=== PATIENT | male | born 1945 | race Caucasian/White ===

== ENCOUNTER 2019-12-22 11:06 | Outpatient (CLI) | payer MEDICARE ==
--- NOTE | 2019-12-22 12:14 | CT Report ---
PROCEDURE: CHEST WO INDICATIONS: STENOSIS OF RIGHT CAROTID ARTERY TECHNIQUE: Noncontrast 5 mm thick sections acquired from the pulmonary apices to the posterior costophrenic angl es. 7 mm thick coronal and sagittal MIP reformats were then acquired. For radiation dose reduction, the following was used: automated exposure control, adjustment of mA and/or kV according to patient size. COMPARISON: None available FINDINGS: Image quality: Excellent. Lungs and pleura: No acute air space opacities. Centrilobular emphysematous changes are seen, which are more prominent at the lung apices down at the lung bases. No pleural effusions or pneumothorax. Central and peripheral airways are patent and normal in caliber. Mediastinum: Heart size is normal. There is a small to moderate pericardial effusion. No mediastina l adenopathy by size criteria. Thoracic aorta and central pulmonary arteries are normal in size. At herosclerotic changes are seen, including involving the coronary arteries. Esophagus is normal in [place]. No hiatal hernia. Bones and chest wall: No suspicious bony lesions. Age-appropriate degenerative changes are seen. No vertebral body compression fractures. No axillary or supraclavicular adenopathy by size criteria. The thyroid is normal in size. Abdomen: Atherosclerotic calcification can be seen, including involving the renal arteries and the pr oximal branches of the aorta. The visualized portions of the upper abdominal structures are otherwise within normal limits. IMPRESSION: No pulmonary nodules are seen. Centrilobular emphysematous changes are seen. Small to moderate pericardial effusion. Atherosclerotic changes are seen, including involving the coronary arteries, the branches of the aort a, and the renal arteries. Reviewed by: Luis Bedoya MD on 12/22/2019 11:12 AM DYANA Approved by: Luis Bedoya MD on 12/22/2019 11:12 AM AKSABRINA Station ID: [id number]
--- NOTE | 2019-12-22 15:00 | Ultrasound Report ---
PROCEDURE: Carotid Doppler Complete INDICATIONS: STENOSIS OF RIGHT CAROTID ARTERY TECHNIQUE: Color and pulse Doppler interrogation was performed of both carotid systems, with image documentation and velocity measurements. COMPARISON: None available FINDINGS: Right side: Brachial blood pressure: Not given Common carotid artery peak systolic velocity: 90 cm/sec. Internal carotid artery peak systolic velocity: 146 cm/sec. Internal carotid artery end diastolic velocity: 34 cm/sec. External carotid artery peak systolic velocity: 133 cm/sec. ICA/CCA peak systolic ratio: 1.6 Raygoza scale imaging description: Areas of atherosclerotic change are seen. Percent internal carotid artery stenosis: 50-69% stenosis by velocity criteria. Vertebral artery: Flow direction is antegrade. Left side: Brachial blood pressure: Not given Common carotid artery peak systolic velocity: 153 cm/sec. Internal carotid artery peak systolic velocity: 134 cm/sec. Internal carotid artery end diastolic velocity: 26 cm/sec. External carotid artery peak systolic velocity: 171 cm/sec. ICA/CCA peak systolic ratio: 0.9 Raygoza scale imaging description: Atherosclerotic changes are seen. Percent internal carotid artery stenosis: 50-69% stenosis by velocity criteria. Vertebral artery: Flow direction is antegrade. IMPRESSION: By velocity criteria, there are 50-69% stenoses seen of the bilateral internal carotid arteries, righ t worse than left. The estimate of stenosis included in the report of the imaging study was calculated using the NASCET method Reviewed by: Luis Bedoya MD on 12/22/2019 1:59 PM DYANA Approved by: Luis Bedoya MD on 12/22/2019 1:59 PM DYANA Station ID: [id number]
== END 2019-12-22 11:07 | disposition home or self-care (01) ==
LOC: DI 11:06
PROVIDERS: ATTEND Family Medicine
DX: I65.23 Occlusion and stenosis of bilateral carotid arteries (principal); J43.2 Centrilobular emphysema; I31.3 Pericardial effusion (noninflammatory); I25.10 Atherosclerotic heart disease of native coronary artery without angina pectoris; I70.1 Atherosclerosis of renal artery
CPT/HCPCS: 71250; 93880

== ENCOUNTER 2019-12-22 11:20 | Outpatient (CLI) | payer MEDICARE ==
[2019-12-22 12:37] LABS: BASOPHILS % (AUTO) 0.5 %; EOSINOPHILS # (AUTO) 0.1 10^3/uL (0.0-0.7); EOSINOPHILS % (AUTO) 1.5 %; HGB - HEMOGLOBIN 11.9 g/dL (14.0-18.0); LYMPHOCYTES # (AUTO) 1.5 10^3/uL (1.5-3.5); LYMPHOCYTES % (AUTO) 19.2 %; MEAN CORPUSCULAR HEMOGLOBIN 31.8 pg (27.0-31.0); MEAN CORPUSCULAR HGB CONC 33.5 g/dL (32.0-36.0); MEAN CORPUSCULAR VOLUME 94.9 fL (80.0-94.0); MEAN PLATELET VOLUME 9.6 fL (7.4-11.4); MONOCYTES # (AUTO) 0.7 10^3/uL (0.0-1.0); MONOCYTES % (AUTO) 8.6 %; NEUTROPHILS # (AUTO) 5.6 10^3/uL (1.5-6.6); NEUTROPHILS % (AUTO) 69.8 %; PLT - PLATELET COUNT 182 10^3/uL (130-450); RED BLOOD COUNT 3.74 10^6/uL (4.70-6.10); RED CELL DISTRIBUTION WIDTH 12.8 % (12.0-15.0)
[2019-12-22 12:55] LABS: ALBUMIN 4.1 g/dL (3.2-5.5); ALBUMIN/GLOBULIN RATIO 1.1 (1.0-2.2); ALKALINE PHOSPHATASE 53 IU/L (42-121); ALT ALANINE AMINOTRANSFERASE 24 IU/L (10-60); AST ASPARTATE AMINOTRANSFERASE 18 IU/L (10-42); BILIRUBIN,TOTAL 1.1 mg/dL (0.2-1.0); BUN - BLOOD UREA NITROGEN 23 mg/dL (6-20); CALCIUM 9.1 mg/dL (8.5-10.3); CARBON DIOXIDE - CO2 25 mmol/L (21-32); CHLORIDE 103 mmol/L (101-111); CHOL/HDL RATIO 2.1 (<5.0); CHOLESTEROL 93 mg/dL; CREATININE 1.3 mg/dL (0.6-1.2); GLUCOSE 122 mg/dL (70-100); HDL CHOLESTEROL 44 mg/dL; LDL CHOLESTEROL,CALCULATED 36 mg/dL; LDL/HDL RATIO 0.8 (<3.6); SODIUM 138 mmol/L (135-145); TOTAL PROTEIN 7.8 g/dL (6.7-8.2); VLDL CHOLESTEROL 13 mg/dL
== END 2019-12-22 11:21 | disposition home or self-care (01) ==
LOC: LAB 11:20
PROVIDERS: ATTEND Family Medicine
DX: I10 Essential (primary) hypertension (principal); R06.02 Shortness of breath; R63.5 Abnormal weight gain; M79.89 Other specified soft tissue disorders
CPT/HCPCS: 36415; 80053; 80061; 83721; 83880; 84443; 85025; 85379

== ENCOUNTER 2020-01-24 11:55 | Outpatient (CLI) | payer MEDICARE ==
--- NOTE | 2020-01-25 21:08 | Ultrasound Report ---
PROCEDURE: Retroperitoneal INDICATIONS: DYSPNEA TECHNIQUE: Real-time scanning was performed of the retroperitoneal organs, with image documentation. COMPARISON: None. FINDINGS: Kidneys: Kidneys are normal in size. Right kidney measures 11.3 cm long; left kidney measures 11.0 cm long. Right renal cortical thickness is 1.3 cm; left renal cortical thickness is 1.7 cm. No sol d masses, hydronephrosis, or nephrolithiasis. Septated cyst involving the lower pole of the left kid juan measuring 5.2 x 3.2 x 3.7 cm. Bladder: Mild bladder wall thickening. Prevoid bladder measures 111.6 mL. Minimal postvoid residual o f 6.5 mL. Bilateral ureteral jets are noted. Enlarged prostate measuring 4.7 x 4.2 x 5.8 cm. IMPRESSION: 1. Normal-sized kidneys with no evidence of hydronephrosis or mass. 2. Enlarged prostate with bladder wall thickening. 3. No significant postvoid residual. Reviewed by: Jaret Dumas MD on 01/25/2020 9:07 PM PDT Approved by: Jaret Dumas MD on 01/25/2020 9:07 PM PDT Station ID: [id number]
== END 2020-01-24 11:56 | disposition home or self-care (01) ==
LOC: DI 11:55
PROVIDERS: ATTEND Family Medicine
DX: R06.09 Other forms of dyspnea (principal); N40.0 Benign prostatic hyperplasia without lower urinary tract symptoms; N32.89 Other specified disorders of bladder; Z87.891 Personal history of nicotine dependence
CPT/HCPCS: 76770; 93306

== ENCOUNTER 2020-02-06 09:33 | Outpatient (CLI) | payer MEDICARE ==
[2020-02-06 09:46] LABS: BASOPHILS # (AUTO) 0.1 10^3/uL (0.0-0.1); BASOPHILS % (AUTO) 0.6 %; EOSINOPHILS # (AUTO) 0.3 10^3/uL (0.0-0.7); EOSINOPHILS % (AUTO) 4.1 %; HGB - HEMOGLOBIN 11.5 g/dL (14.0-18.0); LYMPHOCYTES # (AUTO) 2.4 10^3/uL (1.5-3.5); MEAN CORPUSCULAR HEMOGLOBIN 31.8 pg (27.0-31.0); MEAN CORPUSCULAR HGB CONC 33.3 g/dL (32.0-36.0); MEAN CORPUSCULAR VOLUME 95.3 fL (80.0-94.0); MEAN PLATELET VOLUME 9.3 fL (7.4-11.4); MONOCYTES # (AUTO) 0.9 10^3/uL (0.0-1.0); MONOCYTES % (AUTO) 11.2 %; NEUTROPHILS # (AUTO) 4.1 10^3/uL (1.5-6.6); NEUTROPHILS % (AUTO) 52.6 %; PLT - PLATELET COUNT 197 10^3/uL (130-450); RED BLOOD COUNT 3.62 10^6/uL (4.70-6.10); RED CELL DISTRIBUTION WIDTH 13.1 % (12.0-15.0); WHITE BLOOD COUNT 7.7 x10^3/uL (4.8-10.8)
[2020-02-06 09:55] LABS: BILIRUBIN,URINE NEGATIVE (NEGATIVE); GLUCOSE, URINE (UA) NEGATIVE (NEGATIVE); KETONES,URINE (UA) TRACE mg/dL (NEGATIVE); LEUKOCYTE ESTERASE, URINE NEGATIVE (NEGATIVE); NITRITE,URINE NEGATIVE (NEGATIVE); OCCULT BLOOD,URINE NEGATIVE (NEGATIVE); PH,URINE 5.5 PH (5.0-7.5); PROTEIN,URINE NEGATIVE (NEGATIVE); UROBILINOGEN,URINE 0.2 (NORMAL) E.U./dL (NORMAL)
[2020-02-06 09:58] LABS: CLARITY,URINE CLEAR (CLEAR)
[2020-02-06 10:04] LABS: CALCIUM 9.3 mg/dL (8.5-10.3); CREATININE 1.5 mg/dL (0.6-1.2)
[2020-02-06 10:06] LABS: BACTERIA,URINE Rare /HPF (None Seen); RBC,URINE 0-5 /HPF (0-5); SQUAMOUS EPITHELIAL CELL,UR RARE Squamous (<= Few)
[2020-02-06 10:11] LABS: HB2 TOTAL 12.1 g/dL; HEMOGLOBIN A1C 0.54 g/dL; HEMOGLOBIN A1C % 6.2 % (4.6-6.2)
[2020-02-06 10:36] LABS: CREATININE,URINE 246.9 mg/dL; MICROALBUMIN,URINE 0.5 mg/dL (0-300.0)
== END 2020-02-06 09:34 | disposition home or self-care (01) ==
LOC: LAB 09:33
PROVIDERS: ATTEND Family Medicine
DX: D64.9 Anemia, unspecified (principal); R73.03 Prediabetes; R79.89 Other specified abnormal findings of blood chemistry
CPT/HCPCS: 36415; 80048; 81001; 82043; 82570; 82728; 83036; 83540; 84466; 85025; 87086

== ENCOUNTER 2020-03-01 10:41 | Outpatient (CLI) | payer MEDICARE | END 2020-03-01 10:42 | disposition home or self-care (01) | LOC: DI 10:41 | PROVIDERS: ATTEND Family Medicine | DX: J43.2 Centrilobular emphysema (principal); R91.1 Solitary pulmonary nodule ==

== ENCOUNTER 2020-03-01 10:42 | Outpatient (CLI) | payer MEDICARE ==
--- NOTE | 2020-03-01 18:54 | Ultrasound Report ---
PROCEDURE: Carotid Doppler Complete INDICATIONS: STENOSIS OF RT CAROTID ARTERY TECHNIQUE: Color and pulse Doppler interrogation was performed of both carotid systems, with image documentation and velocity measurements. COMPARISON: 12/22/2019 FINDINGS: Right side: Common carotid artery peak systolic velocity: 97 cm/sec, prior 90 cm/sec. Internal carotid artery peak systolic velocity: 109 cm/sec, prior 146 cm/sec. Internal carotid artery end diastolic velocity: 19 cm/sec, prior 34 cm/sec. External carotid artery peak systolic velocity: 114 cm/sec, prior 133 cm/sec. ICA/CCA peak systolic ratio: 1, prior 1.6 Raygoza scale imaging description: Moderate atherosclerotic changes are seen. Percent internal carotid artery stenosis: Less than 50% by velocity criteria. Vertebral artery: Flow direction is antegrade. Left side: Common carotid artery peak systolic velocity: 148 cm/sec, prior 153 cm/sec. Internal carotid artery peak systolic velocity: 160 cm/sec, prior 134 cm/sec. Internal carotid artery end diastolic velocity: 17 cm/sec, prior 26 cm/sec. External carotid artery peak systolic velocity: 148 cm/sec, prior 171 cm/sec. ICA/CCA peak systolic ratio: 0.7, prior 0.9 Raygoza scale imaging description: Moderate atherosclerotic changes are seen Percent internal carotid artery stenosis: 50-69% stenosis by velocity criteria Vertebral artery: Flow direction is antegrade. IMPRESSION: Examination similar to prior, with a mild stenosis seen on the left, likely just greater than 50% cecil nosis. The previously seen right internal carotid artery stenosis is now regarded by velocity criteria to be just below 50%. The estimate of stenosis included in the report of the imaging study was calculated using the NASCET method Reviewed by: Luis Bedoya MD on 03/01/2020 5:52 PM AKDT Approved by: Luis Bedoya MD on 03/01/2020 5:52 PM AKDT Station ID: [id number]
== END 2020-03-01 10:43 ==
LOC: DI 10:42
PROVIDERS: ATTEND Family Medicine
DX: I65.22 Occlusion and stenosis of left carotid artery (principal); J43.2 Centrilobular emphysema; R91.1 Solitary pulmonary nodule
CPT/HCPCS: 93880

== ENCOUNTER 2020-03-15 09:38 | Outpatient (CLI) | payer MEDICARE ==
--- NOTE | 2020-03-15 12:04 | CT Report ---
PROCEDURE: CHEST WO INDICATIONS: STENOSIS OF RIGHT CAROTID ARTERY TECHNIQUE: Noncontrast 5 mm thick sections acquired from the pulmonary apices to the posterior costophrenic angl es. 7 mm thick coronal and sagittal MIP reformats were then acquired. For radiation dose reduction, the following was used: automated exposure control, adjustment of mA and/or kV according to patient size. COMPARISON: 12/22/2019 FINDINGS: Image quality: Excellent. Lungs and pleura: Centrilobular emphysematous changes are seen, which are more prominent at the lung apices down at the lung bases. No acute air space opacities. No pleural effusions or pneumothorax. Central and peripheral airways are patent and normal in caliber. Mediastinum: Heart size is normal. There is a small pericardial effusion. No mediastinal adenopathy by size criteria. Thoracic aorta and central pulmonary arteries are normal in size. Atherosclerotic calcification is seen. Coronary artery calcifications are seen. Esophagus is normal in caliber. No hiatal hernia. Bones and chest wall: No suspicious bony lesions. No vertebral body compression fractures. No axil guy or supraclavicular adenopathy by size criteria. The thyroid is normal in size. Abdomen: A gallstone is seen, as on series 3 image 64. Diverticulosis can be seen, without karly fin dings of active diverticulitis. Atherosclerotic calcification is seen. The visualized portions of th e upper abdominal structures are otherwise within normal limits. IMPRESSION: Extensive atherosclerotic calcification is seen, including coronary artery calcification. The previously seen pericardial effusion has improved since the prior and is now small in size. Incidental note is made of: Centrilobular emphysematous changes Gallstone Diverticulosis can be seen, without karly findings of active diverticulitis. Reviewed by: Luis Bedoya MD on 03/15/2020 11:02 AM DYANA Approved by: Luis Bedoya MD on 03/15/2020 11:02 AM AKSABRINA Station ID: [id number]
== END 2020-03-15 09:39 | disposition home or self-care (01) ==
LOC: DI 09:38
PROVIDERS: ATTEND Family Medicine
DX: I25.10 Atherosclerotic heart disease of native coronary artery without angina pectoris (principal)
CPT/HCPCS: 71250

== ENCOUNTER 2020-05-11 08:28 | Outpatient (CLI) | payer MEDICARE ==
[2020-05-11 09:36] LABS: BUN - BLOOD UREA NITROGEN 20 mg/dL (6-20); CALCIUM 9.1 mg/dL (8.5-10.3); CARBON DIOXIDE - CO2 26 mmol/L (21-32); CHLORIDE 105 mmol/L (101-111); CHOL/HDL RATIO 3.9 (<5.0); CHOLESTEROL 104 mg/dL; CREATININE 1.6 mg/dL (0.6-1.2); GLUCOSE 134 mg/dL (70-100); HDL CHOLESTEROL 27 mg/dL; LDL CHOLESTEROL,CALCULATED 49 mg/dL; LDL/HDL RATIO 1.8 (<3.6); SODIUM 138 mmol/L (135-145); VLDL CHOLESTEROL 28 mg/dL
== END 2020-05-11 08:29 | disposition home or self-care (01) ==
LOC: LAB 08:28
PROVIDERS: ATTEND Family Medicine
DX: I10 Essential (primary) hypertension (principal); Z12.11 Encounter for screening for malignant neoplasm of colon
CPT/HCPCS: 36415; 80048; 80061; 83721

== ENCOUNTER 2020-12-15 07:21 | Outpatient (CLI) | payer OTHER ==
[2020-12-15 07:41] LABS: BASOPHILS # (AUTO) 0.1 10^3/uL (0.0-0.1); BASOPHILS % (AUTO) 0.8 %; EOSINOPHILS # (AUTO) 0.4 10^3/uL (0.0-0.7); EOSINOPHILS % (AUTO) 4.7 %; HCT - HEMATOCRIT 36.6 % (42.0-52.0); HGB - HEMOGLOBIN 12.5 g/dL (14.0-18.0); LYMPHOCYTES # (AUTO) 2.6 10^3/uL (1.5-3.5); LYMPHOCYTES % (AUTO) 33.3 %; MEAN CORPUSCULAR HEMOGLOBIN 32.2 pg (27.0-31.0); MEAN CORPUSCULAR HGB CONC 34.2 g/dL (32.0-36.0); MEAN CORPUSCULAR VOLUME 94.3 fL (80.0-94.0); MEAN PLATELET VOLUME 9.9 fL (7.4-11.4); MONOCYTES # (AUTO) 0.8 10^3/uL (0.0-1.0); MONOCYTES % (AUTO) 9.6 %; NEUTROPHILS % (AUTO) 51.2 %; PLT - PLATELET COUNT 195 10^3/uL (130-450); RED BLOOD COUNT 3.88 10^6/uL (4.70-6.10); RED CELL DISTRIBUTION WIDTH 13.2 % (12.0-15.0); WHITE BLOOD COUNT 7.8 x10^3/uL (4.8-10.8)
[2020-12-15 07:51] LABS: BILIRUBIN,URINE NEGATIVE (NEGATIVE); GLUCOSE, URINE (UA) NEGATIVE (NEGATIVE); KETONES,URINE (UA) NEGATIVE (NEGATIVE); LEUKOCYTE ESTERASE, URINE NEGATIVE (NEGATIVE); NITRITE,URINE NEGATIVE (NEGATIVE); OCCULT BLOOD,URINE NEGATIVE (NEGATIVE); PROTEIN,URINE NEGATIVE (NEGATIVE); UROBILINOGEN,URINE 0.2 (NORMAL) E.U./dL (NORMAL)
[2020-12-15 07:54] LABS: CLARITY,URINE CLEAR (CLEAR)
[2020-12-15 07:57] LABS: BUN - BLOOD UREA NITROGEN 19 mg/dL (6-20); CALCIUM 9.5 mg/dL (8.5-10.3); CARBON DIOXIDE - CO2 26 mmol/L (21-32); CHLORIDE 101 mmol/L (101-111); CHOLESTEROL 101 mg/dL; CREATININE 1.6 mg/dL (0.6-1.2); GFR - MDRD 42 (>89); GLUCOSE 129 mg/dL (70-100); HDL CHOLESTEROL 25 mg/dL; LDL CHOLESTEROL,CALCULATED 47 mg/dL; LDL/HDL RATIO 1.9 (<3.6); POTASSIUM 4.2 mmol/L (3.5-5.0); SODIUM 138 mmol/L (135-145); TRIGLYCERIDES 144 mg/dL; VLDL CHOLESTEROL 29 mg/dL
[2020-12-15 08:00] LABS: CREATININE,URINE 156.8 mg/dL; MICROALBUM/CREATININE RATIO,UR 3.8 ug/mg (<30.0); MICROALBUMIN,URINE 0.6 mg/dL (0-300.0)
[2020-12-15 08:04] LABS: BACTERIA,URINE Few /HPF (None Seen); RBC,URINE 0-5 /HPF (0-5); SQUAMOUS EPITHELIAL CELL,UR RARE Squamous (<= Few); WBC,URINE 0-3 /HPF (0-3)
[2020-12-15 13:01] LABS: ESTIMATED AVERAGE GLUCOSE 126 mg/dL (70-100)
== END 2020-12-15 07:22 | disposition home or self-care (01) ==
LOC: LAB 07:21
PROVIDERS: ATTEND Family Medicine
DX: R73.03 Prediabetes (principal); N18.30 Chronic kidney disease, stage 3 unspecified; I10 Essential (primary) hypertension; Z12.11 Encounter for screening for malignant neoplasm of colon
CPT/HCPCS: 36415; 80048; 80061; 81001; 82043; 82570; 83036; 83721; 85025; 87086

== ENCOUNTER 2021-01-29 08:49 | Outpatient (CLI) | payer MEDICARE ==
--- NOTE | 2021-01-29 17:06 | Ultrasound Report ---
PROCEDURE: Carotid Doppler Complete INDICATIONS: BILATERAL CAROTID ARTERY STENOSIS TECHNIQUE: Color and pulse Doppler interrogation was performed of both carotid systems, with image documentation and velocity measurements. COMPARISON: Prior carotid duplex examination dated 03/01/2020 FINDINGS: Right side: Brachial blood pressure: 153/63 mm Hg. Common carotid artery peak systolic velocity: 57 cm/sec. Internal carotid artery peak systolic velocity: 172 cm/sec. Internal carotid artery end diastolic velocity: 28 cm/sec. External carotid artery peak systolic velocity: 347 cm/sec. ICA/CCA peak systolic ratio: 3 . Raygoza scale imaging description: Heavy scattered plaque. Percent internal carotid artery stenosis: 50-69% stenosis . Vertebral artery: Flow direction is antegrade. Left side: Brachial blood pressure: 165/60 mm Hg. Common carotid artery peak systolic velocity: 79 cm/sec. Internal carotid artery peak systolic velocity: 137 cm/sec. Internal carotid artery end diastolic velocity: 28 cm/sec. External carotid artery peak systolic velocity: 172 cm/sec. ICA/CCA peak systolic ratio: 1.7 . Raygoza scale imaging description: Heavy scattered plaque. Percent internal carotid artery stenosis: 50-59% stenosis . Vertebral artery: Flow direction is antegrade. IMPRESSION: Progressive 50-69% right internal carotid artery stenosis. Stable 50-69% left internal carotid artery stenosis. The estimate of stenosis included in the report of the imaging study was calculated using the NASCET method Reviewed by: SANTIAGO Tavarez on 01/29/2021 5:04 PM PDT Approved by: Ade Gerber MD on 01/29/2021 5:04 PM PDT Station ID: [id number]
== END 2021-01-29 08:50 | disposition home or self-care (01) ==
LOC: DI 08:49
PROVIDERS: ATTEND Family Medicine
DX: I65.23 Occlusion and stenosis of bilateral carotid arteries (principal)
CPT/HCPCS: 93880

== ENCOUNTER 2021-03-31 09:16 | Outpatient (CLI) | payer MEDICARE ==
--- NOTE | 2021-03-31 11:37 | CT Report ---
PROCEDURE: CHEST WO INDICATIONS: LUNG NODULE TECHNIQUE: Noncontrast images were acquired from the pulmonary apices to the posterior costophrenic angles. Mul tiplanar MIP reformats were then acquired. For radiation dose reduction, the following was used: au tomated exposure control, adjustment of mA and/or kV according to patient size. COMPARISON: 03/15/2020 and 12/22/2019 FINDINGS: Image quality: Excellent. Lungs and pleura: No acute air space opacities. Redemonstration of moderate centrilobular pulmonary emphysematous changes. Findings are upper lobe predominant. There is a 5 mm right middle lobe pulmon dionisio nodule seen on axial image 192, series 4 which on retrospective review measured approximately 2 m m but not definitively seen on the comparison studies. No septal thickening or nodularity. No pleural effusions or pneumothorax. Central and peripheral airways are patent and normal in caliber. Mediastinum: Heart size is normal. Scattered atherosclerotic calcifications of the coronary arteries . Small pericardial effusion which is slightly larger than 03/15/2020 but similar in size to 0. No pericardial thickening or abnormal enhancement. No mediastinal adenopathy by size criteria. T horacic aorta and central pulmonary arteries are normal in size. Redemonstration of extensive athero sclerotic calcifications of the thoracic aorta. No aneurysmal dilatation. Esophagus is normal in [place]. No hiatal hernia. Bones and chest wall: No suspicious bony lesions. No acute vertebral body compression fractures. N o axillary or supraclavicular adenopathy by size criteria. The thyroid is normal in size and there a re no incidental findings. Abdomen: Cholelithiasis without CT evidence for acute cholecystitis. Scattered colonic diverticula wi thout evidence for acute diverticulitis. Extensive atherosclerotic calcifications of the renal vascul ature and abdominal aorta. IMPRESSION: 1. There is a 5 mm right middle lobe pulmonary nodule. Recommend follow-up chest CT in 6-12 months to document stability. 2. Centrilobular pulmonary emphysema. 3. Extensive atherosclerotic vascular disease as before. 4. Cholelithiasis without CT evidence for acute cholecystitis. 5. Scattered colonic diverticulosis without karly diverticulitis. Only the upper abdomen was imaged o n this exam. 6. Small pericardial effusion. CLINICAL RECOMMENDATION STATEMENTS: In patients <35 years with an ITN detected on CT, MRI, or extrathyroidal ultrasound, the Committee re commends further evaluation with dedicated thyroid ultrasound if the nodule is ?1 cm and has no suspi cious imaging features, and if the patient has normal life expectancy. In patients ?35 years with an ITN detected on CT, MRI, or extrathyroidal ultrasound, the Committee re commends further evaluation with dedicated thyroid ultrasound if the nodule is ?1.5 cm and has no stella picious imaging features, and if the patient has normal life expectancy. (ACR, 2014) Reviewed by: Eduardo Lee MD on 03/31/2021 11:36 AM PDT Approved by: Eduardo Lee MD on 03/31/2021 11:36 AM PDT Station ID: [id number]
== END 2021-03-31 09:17 | disposition home or self-care (01) ==
LOC: DI 09:16
PROVIDERS: ATTEND Family Medicine
DX: R91.1 Solitary pulmonary nodule (principal); J43.2 Centrilobular emphysema; K80.20 Calculus of gallbladder without cholecystitis without obstruction; K57.30 Diverticulosis of large intestine without perforation or abscess without bleeding; I31.3 Pericardial effusion (noninflammatory); I70.0 Atherosclerosis of aorta

== ENCOUNTER 2021-08-20 08:50 | Outpatient (CLI) | payer MEDICARE ==
[2021-08-20 09:29] LABS: BASOPHILS % (AUTO) 0.5 %; EOSINOPHILS # (AUTO) 0.2 10^3/uL (0.0-0.7); EOSINOPHILS % (AUTO) 2.3 %; HCT - HEMATOCRIT 35.4 % (42.0-52.0); HGB - HEMOGLOBIN 11.9 g/dL (14.0-18.0); LYMPHOCYTES # (AUTO) 2.3 10^3/uL (1.5-3.5); LYMPHOCYTES % (AUTO) 28.9 %; MEAN CORPUSCULAR HEMOGLOBIN 31.8 pg (27.0-31.0); MEAN CORPUSCULAR HGB CONC 33.6 g/dL (32.0-36.0); MEAN CORPUSCULAR VOLUME 94.7 fL (80.0-94.0); MEAN PLATELET VOLUME 9.7 fL (7.4-11.4); MONOCYTES # (AUTO) 0.8 10^3/uL (0.0-1.0); MONOCYTES % (AUTO) 10.6 %; NEUTROPHILS # (AUTO) 4.6 10^3/uL (1.5-6.6); NEUTROPHILS % (AUTO) 57.4 %; PLT - PLATELET COUNT 191 10^3/uL (130-450); RED BLOOD COUNT 3.74 10^6/uL (4.70-6.10); RED CELL DISTRIBUTION WIDTH 13.2 % (12.0-15.0)
[2021-08-20 09:55] LABS: CALCIUM 9.4 mg/dL (8.5-10.3); CREATININE 1.5 mg/dL (0.6-1.2); POTASSIUM 4.3 mmol/L (3.5-5.0)
[2021-08-20 10:35] LABS: ESTIMATED AVERAGE GLUCOSE 134 mg/dL (70-100); HEMOGLOBIN A1c% 6.3 % (4.27-6.07)
--- NOTE | 2021-08-20 11:13 | CT Report ---
PROCEDURE: CHEST WO INDICATIONS: LUNG NODULE TECHNIQUE: Noncontrast 1mm axial images were acquired from the pulmonary apices to the posterior costophrenic an gles. Axial 5 mm soft tissue kernel reconstructions were performed as well as 8 mm axial MIP and cor onal and sagittal 5 mm reformations. For radiation dose reduction, the following was used: automate d exposure control, adjustment of mA and/or kV according to patient size. COMPARISON: 03/31/2021,, 03/15/2020, 12/22/2019 FINDINGS: Image quality: Excellent. Lungs and pleura: Irregular, part solid juxta fissural nodule is present in the anterior right middle lobe measuring 5 mm. There is minor horizontal scarring in the lateral lingula, and a focal area of interlobular septal thickening in the anterior lingula at the lung base. There are moderate upper lob e emphysematous changes. No other nodules, masses, groundglass opacities, or pleural effusions. Centr al and peripheral airways are patent. Mediastinum: Heart size is normal. Moderate aortic valvular and mitral annular calcification. No pe ricardial effusion. No mediastinal adenopathy by size criteria. Thoracic aorta and central pulmonar y arteries are normal in size. Moderate aortic arch calcification. Esophagus is normal in caliber. No hiatal hernia. Bones and chest wall: No suspicious bony lesions. No vertebral body compression fractures. No axil guy or supraclavicular adenopathy by size criteria. The thyroid is normal in size and there are no incidental findings. Abdomen: Upper abdomen demonstrates heavy atherosclerotic calcification of aorta and branch arteries, and small calcified stone near the gallbladder neck. Solid organs and visible bowel loops are otherw ise normal. IMPRESSION: 1. Stable 5 mm juxta fissural right middle lobe lung nodule. This has been gradually increasing in si ze over nearly 2 years. Its location is most suggestive of an intrapulmonary lymph node, however its morphology is atypical. Continued follow-up is recommended with chest CT in 6 months. 2. Otherwise stable exam demonstrating moderate emphysema and mild lingular interstitial scarring. Reviewed by: Brii Ugarte MD on 08/20/2021 11:12 AM PST Approved by: Brii Ugarte MD on 08/20/2021 11:12 AM PST Station ID: [id number]
== END 2021-08-20 08:51 | disposition home or self-care (01) ==
LOC: DI 08:50
PROVIDERS: ATTEND Family Medicine
DX: R91.1 Solitary pulmonary nodule (principal); R73.03 Prediabetes; R79.89 Other specified abnormal findings of blood chemistry; D64.9 Anemia, unspecified; J43.9 Emphysema, unspecified
CPT/HCPCS: 36415; 80048; 82728; 83036; 83540; 84466; 85025

== ENCOUNTER 2022-03-10 13:58 | Outpatient (CLI) | payer MEDICARE | END 2022-03-10 13:59 | disposition home or self-care (01) | LOC: LAB 13:58 | PROVIDERS: ATTEND Family Medicine | DX: R97.20 Elevated prostate specific antigen [PSA] (principal) | CPT/HCPCS: 36415; 84153; 87086 ==

== ENCOUNTER 2023-10-25 08:08 | Outpatient (CLI) | payer MEDICARE ==
--- NOTE | 2023-10-25 10:50 | Ultrasound Report ---
PROCEDURE: Renal (Retroperitoneal) INDICATIONS: CAROTID STENOSIS,CKD TECHNIQUE: Real-time scanning was performed of the retroperitoneal organs, with image documentation. COMPARISON: None. FINDINGS: Kidneys: Kidneys are normal in size. Right kidney measures 10.5 cm long; left kidney measures 11.9 cm long. Right renal cortical thickness is 1.7 cm; left renal cortical thickness is 1.6 cm. No sol d masses, hydronephrosis, or nephrolithiasis. Left lower pole anechoic cyst with thin linear septati on measuring 5.7 x 3.7 x 4.5 cm. No complex cystic lesions which require follow-up. Bladder: Pre-void bladder volume is 43 mL. Post-void residual is 1.5 mL. Pre-void images demonstra te no intraluminal masses or stones. On pre-void images, bilateral ureteral jets are noted with colo r Doppler interrogation. (Of note, ureteral jets may not be detectable in up to 25% of cases due to insufficient differences in specific gravity between ureteral and bladder urine). Miscellaneous: No free abdominal fluid. Prostate measures 4.1 x 4.1 x 5.1 cm. IMPRESSION: 1.Bilateral kidneys are normal in size with no hydronephrosis or visualized nephrolithiasis. 2.Postvoid residual is 1.5 mL. 3.Prostate is mildly enlarged measuring 4.1 x 4.1 x 5.1 cm. Reviewed by: Channing Og MD on 10/25/2023 10:49 AM PDT Approved by: Channing Og MD on 10/25/2023 10:49 AM PDT Station ID: [id number]
--- NOTE | 2023-10-25 11:06 | Ultrasound Report ---
PROCEDURE: Carotid Doppler Complete INDICATIONS: CAROTID STENOSIS,CKD TECHNIQUE: Color and pulse Doppler interrogation was performed of both carotid systems, with image documentation and velocity measurements. COMPARISON: Carotid ultrasound on January 29, 2021. CT chest without contrast on February 23, 2022. FINDINGS: Right side: Brachial blood pressure: 149 mm Hg. Common carotid artery peak systolic velocity: 55.4 cm/sec. Internal carotid artery peak systolic velocity: 146.2 cm/sec. Internal carotid artery end diastolic velocity: 26.3 cm/sec. External carotid artery peak systolic velocity: 68.9 cm/sec. ICA/CCA peak systolic ratio: 2.63 . (Previously 3.02) Raygoza scale imaging description: Moderate to marked atherosclerotic plaque. Percent internal carotid artery stenosis: 50-69 percent stenosis. Vertebral artery: Flow direction is antegrade. Left side: Brachial blood pressure: 165 mm Hg. Common carotid artery peak systolic velocity: 83.3 cm/sec. Internal carotid artery peak systolic velocity: 122.8 cm/sec. Internal carotid artery end diastolic velocity: 27.1 cm/sec. External carotid artery peak systolic velocity: 184.2 cm/sec. ICA/CCA peak systolic ratio: 1.47 . (Previously 1.37) Raygoza scale imaging description: Marked atherosclerotic plaque. Percent internal carotid artery stenosis: 50-69 percent stenosis. Vertebral artery: Flow direction is antegrade. IMPRESSION: 1. In the right internal carotid artery, there is 50-69 percent stenosis based on peak systolic veloc ity criteria, stable. 2. In the left internal carotid artery, there is 50-69 percent stenosis based on peak systolic veloci ty criteria, stable. 3. Antegrade blood flow within the right vertebral artery. 4. Antegrade blood flow within the left vertebral artery. 5. Greater than 10 mmHg difference in the bilateral brachial pressures which is nonspecific and can b e seen in the setting of a hemodynamically significant subclavian artery stenosis. The estimate of stenosis included in the report of the imaging study was calculated using the [facility]-end orsed standards of carotid artery stenosis. Reviewed by: Channing Og MD on 10/25/2023 11:04 AM PDT Approved by: Channing Og MD on 10/25/2023 11:04 AM PDT Station ID: [id number]
== END 2023-10-25 08:09 | disposition home or self-care (01) ==
LOC: DI 08:08
PROVIDERS: ATTEND Family Medicine
DX: I65.23 Occlusion and stenosis of bilateral carotid arteries (principal)
CPT/HCPCS: 93880